=== PATIENT | male | born 1955 | race Caucasian/White ===

== ENCOUNTER 2022-03-29 16:06 | Inpatient (IN) | payer MEDICARE, OTHER ==
[~2022-03-29] VITALS: Ht 165.1 cm; Wt 59.7 kg
[2022-03-29 19:00] VITALS: BP 110/63
[2022-03-29 20:00] VITALS: BP 110/63
[2022-03-29] MEDS ORDERED: NALOXONE HCL 0.4MG/ML VIAL IV PRN (20:45)
[2022-03-29] MEDS ORDERED: DEXTROSE 50% WATER 50ML SYRINGE IV PRN (20:45)
[2022-03-29] MEDS ORDERED: ONDANSETRON HCL 4MG/2ML INJ IV PRN (20:45)
[2022-03-29] MEDS ORDERED: HYDROCODONE/ACETAMINOPHEN 5/325MG TABLET PO PRN (20:45)
[2022-03-29] MEDS ORDERED: MORPHINE SULFATE 2 MG/ML CPJ (NOT FOR IM USE) IV PRN (20:45)
[2022-03-29] MEDS ORDERED: ACETAMINOPHEN 325MG TABLET PO PRN (20:45)
[2022-03-29] MEDS: INSULIN LISPRO 100 UNITS/ML SUBCUT SCH (21:00)
[2022-03-29] MEDS: BLOOD SUGAR DIAGNOSTIC STRIP TEST SCH (21:02)
[2022-03-29] MEDS: MULTIVITAMINS,THER W-MINERALS TABLET PO SCH (21:20)
[2022-03-29] MEDS: ZOLPIDEM TARTRATE 5MG TABLET PO SCH (21:20)
[2022-03-29] MEDS: GABAPENTIN 100MG CAPSULE PO SCH (21:20)
[2022-03-29] MEDS: ARIPIPRAZOLE 5MG TABLET PO SCH (21:20)
[2022-03-29] MEDS: QUETIAPINE FUMARATE 25MG TABLET PO SCH (21:20)
[2022-03-29 23:41] VITALS: BP 90/57
[2022-03-30] VITALS (8 sets, daily range): BP systolic 70–108; BP diastolic 39–62
[2022-03-30] MEDS: SODIUM CHLORIDE 0.9% 1,000 ML IV SCH ×2 (04:37→23:30)
[2022-03-30] MEDS: MIDODRINE HCL 5MG TABLET PO SCH ×3 (04:37→17:06)
[2022-03-30] MEDS: GABAPENTIN 100MG CAPSULE PO SCH ×3 (05:32→21:06)
[2022-03-30] MEDS: INSULIN LISPRO 100 UNITS/ML SUBCUT SCH ×4 (06:10→20:50)
[2022-03-30] MEDS: BLOOD SUGAR DIAGNOSTIC STRIP TEST SCH ×4 (06:10→20:50)
[2022-03-30 07:22] LABS: BASOPHILS % 1.9 % (0.0-2.0); EOSINOPHILS % 3.6 % (0.0-5.0); HEMATOCRIT. 32.3 % (42.0-52.0); HEMOGLOBIN. 10.3 g/dL (14.0-18.0); LYMPHOCYTES % 33.1 % (20.0-50.0); MEAN CORPUSCULAR VOLUME 75.6 fL (80.0-94.0); MEAN PLATELET VOLUME 8.9 fl (7.4-10.4); MONOCYTES % 7.6 % (2.0-8.0); NEUTROPHILS % 53.8 % (40.0-76.0); PLATELET 98 x1000/uL (130-400); RED BLOOD CELL COUNT 4.28 mill/uL (4.7-6.1)
[2022-03-30 08:00] LABS: PHOSPHORUS 4.2 mg/dL (2.5-4.9)
[2022-03-30] MEDS: ARIPIPRAZOLE 5MG TABLET PO SCH (08:57)
[2022-03-30] MEDS: MULTIVITAMINS,THER W-MINERALS TABLET PO SCH (08:57)
[2022-03-30] MEDS: ASPIRIN 81MG EC TABLET PO SCH ×2 (08:57→09:00)
[2022-03-30] MEDS: QUETIAPINE FUMARATE 25MG TABLET PO SCH ×2 (08:57→21:07)
[2022-03-30] MEDS: FOLIC ACID 1MG TABLET PO SCH ×2 (08:57→09:11)
[2022-03-30] MEDS ORDERED: ENOXAPARIN 40MG/0.4ML SYR SUBCUT SCH (10:00)
[2022-03-30] MEDS ORDERED: SODIUM CHLORIDE 0.9% 1000ML BAG (SEPSIS BOLUS) IV NR (12:15)
[2022-03-30 12:54] LABS: INR 1.1; PROTHROMBIN TIME 11.5 sec (9.6-11.0)
[2022-03-30] MEDS ORDERED: SODIUM BICARBONATE 4% (2.4MEQ) 5ML VIAL IV ONE (12:55)
[2022-03-30] MEDS ORDERED: LIDOCAINE HCL/PF 1% 10 MG/ML 5ML VIAL ONE (12:56)
[2022-03-30] MEDS ORDERED: ENOXAPARIN 30MG/0.3ML SYR SUBCUT SCH (13:55)
[2022-03-30] MEDS: ENOXAPARIN 30MG/0.3ML SYR SUBCUT SCH (14:00)
[2022-03-30] MEDS: ZOLPIDEM TARTRATE 5MG TABLET PO SCH (21:06)
[2022-03-31] VITALS: BP 106/61
[2022-03-31 04:00] VITALS: BP 96/52
[2022-03-31] MEDS: GABAPENTIN 100MG CAPSULE PO SCH ×4 (06:05→22:51)
[2022-03-31] MEDS: BLOOD SUGAR DIAGNOSTIC STRIP TEST SCH ×4 (06:21→21:38)
[2022-03-31] MEDS: INSULIN LISPRO 100 UNITS/ML SUBCUT SCH ×3 (06:21→21:00)
[2022-03-31 06:33] LABS: BASOPHILS % 2.1 % (0.0-2.0); EOSINOPHILS % 3.2 % (0.0-5.0); HEMATOCRIT. 33.2 % (42.0-52.0); HEMOGLOBIN. 10.6 g/dL (14.0-18.0); LYMPHOCYTES % 30.3 % (20.0-50.0); MEAN CORPUSCULAR HEMOGLOBIN 24.2 pg (28.0-32.0); MEAN CORPUSCULAR VOLUME 75.7 fL (80.0-94.0); MEAN PLATELET VOLUME 8.9 fl (7.4-10.4); MONOCYTES % 7.7 % (2.0-8.0); NEUTROPHILS % 56.7 % (40.0-76.0); PLATELET 119 x1000/uL (130-400); RED BLOOD CELL COUNT 4.39 mill/uL (4.7-6.1); RED CELL DISTRIBUTION WIDTH 14.9 % (11.6-14.6)
[2022-03-31 08:00] VITALS: BP 94/50
[2022-03-31 12:00] VITALS: BP 92/53
[2022-03-31] MEDS: QUETIAPINE FUMARATE 25MG TABLET PO SCH ×2 (14:18→21:41)
[2022-03-31] MEDS: FOLIC ACID 1MG TABLET PO SCH (14:18)
[2022-03-31] MEDS: ASPIRIN 81MG EC TABLET PO SCH (14:18)
[2022-03-31] MEDS: MULTIVITAMINS,THER W-MINERALS TABLET PO SCH (14:18)
[2022-03-31] MEDS: ENOXAPARIN 30MG/0.3ML SYR SUBCUT SCH (14:20)
[2022-03-31] MEDS: ARIPIPRAZOLE 5MG TABLET PO SCH (14:26)
[2022-03-31] MEDS: MIDODRINE HCL 5MG TABLET PO SCH ×2 (14:27→17:16)
[2022-03-31 16:00] VITALS: BP 105/59
[2022-03-31] MEDS ORDERED: MIDO5TAB4 PO (18:16)
[2022-03-31 20:00] VITALS: BP 110/60
[2022-03-31] MEDS: ZOLPIDEM TARTRATE 5MG TABLET PO SCH (21:00)
[2022-04-01] VITALS: BP 91/53
[2022-04-01 04:00] VITALS: BP 91/55
[2022-04-01] MEDS: GABAPENTIN 100MG CAPSULE PO SCH (06:00)
[2022-04-01] MEDS: BLOOD SUGAR DIAGNOSTIC STRIP TEST SCH (06:10)
[2022-04-01] MEDS: INSULIN LISPRO 100 UNITS/ML SUBCUT SCH (06:11)
[2022-04-01 06:38] VITALS: BP 94/55
[2022-04-01 08:00] VITALS: BP 92/58
[2022-04-01] MEDS: ARIPIPRAZOLE 5MG TABLET PO SCH (09:00)
[2022-04-01] MEDS: QUETIAPINE FUMARATE 25MG TABLET PO SCH (09:00)
[2022-04-01] MEDS: ASPIRIN 81MG EC TABLET PO SCH (09:35)
[2022-04-01] MEDS: MIDODRINE HCL 5MG TABLET PO SCH (09:35)
[2022-04-01] MEDS: FOLIC ACID 1MG TABLET PO SCH (09:35)
[2022-04-01] MEDS: MULTIVITAMINS,THER W-MINERALS TABLET PO SCH (09:35)
[2022-04-01 10:36] VITALS: BP 95/61
== END 2022-04-01 11:35 | disposition home health service (06) | DRG 432 ==
LOC: 8WST 17:50
PROVIDERS: ADMIT Internal Medicine Nephrology; ATTEND Internal Medicine Nephrology
PROC: 0W9G3ZZ Drainage of Peritoneal Cavity, Percutaneous Approach (ICD-10-PCS; principal; 2022-03-31)
PROC: 5A1D70Z Performance of Urinary Filtration, Intermittent, Less than 6 Hours Per Day (ICD-10-PCS; 2022-03-31)
DX: K74.60 Unspecified cirrhosis of liver (principal); E43 Unspecified severe protein-calorie malnutrition; N18.6 End stage renal disease; I12.0 Hypertensive chronic kidney disease with stage 5 chronic kidney disease or end stage renal disease; D61.818 Other pancytopenia; R18.8 Other ascites; E11.22 Type 2 diabetes mellitus with diabetic chronic kidney disease; S51.812A Laceration without foreign body of left forearm, initial encounter; I95.9 Hypotension, unspecified; G90.8 Other disorders of autonomic nervous system; Z20.822 Contact with and (suspected) exposure to COVID-19; X58.XXXA Exposure to other specified factors, initial encounter; Z99.2 Dependence on renal dialysis; Z86.73 Personal history of transient ischemic attack (TIA), and cerebral infarction without residual deficits; Y93.89 Activity, other specified; Y92.89 Other specified places as the place of occurrence of the external cause; Y99.8 Other external cause status; Z99.3 Dependence on wheelchair; Z68.21 Body mass index [BMI] 21.0-21.9, adult
CPT/HCPCS: 36415; 49083; 73560; 76705; 80048; 82962; 83036; 83735; 84100; 85025; 87426; 93306; 97162; 97166; J1650; J1815; J3490; J7030